=== PATIENT | male | born 1960 | race Caucasian/White ===

== ENCOUNTER → 2025-04-21 09:30 | Outpatient (REF) | payer MEDICARE, OTHER, SELFPAY | LOC: WDC 09:30 | PROVIDERS: ATTENDING PHYSICIAN Student in an Organized Health Care Education/Training Program | DX: M70.89 Other soft tissue disorders related to use, overuse and pressure multiple sites (principal); R22.32 Localized swelling, mass and lump, left upper limb; N63.32 Unspecified lump in axillary tail of the left breast | CPT/HCPCS: 76642; 77062; 77066 ==

== ENCOUNTER → 2025-05-26 19:01 | Outpatient (REF) | payer MEDICARE, OTHER, SELFPAY | LOC: MRI 3T 19:01 | PROVIDERS: ATTENDING PHYSICIAN Surgery; FAMILY PHYSICIAN Student in an Organized Health Care Education/Training Program | DX: M79.89 Other specified soft tissue disorders (principal) | CPT/HCPCS: 71552; A9575 ==

== ENCOUNTER 2025-08-01 06:24 | Day surgery (SDC) | payer MEDICARE, OTHER, SELFPAY ==
[2025-08-01] VITALS (11 sets, daily range): BP systolic 0–142; BP diastolic 72–99; BMI 25.5
[2025-08-01] MEDS: TYLENOL 1000 MG PO (11:00)
[2025-08-01] MEDS: NORMOSOL-R/PLASMALYTE-A 1000 IV (11:20)
--- NOTE | 2025-08-01 16:49 | W.IMMPOSTOP ---
Surgical Immed Post Op Note
-
Primary Surgeon: Thierno
Assisting Surgeon: None
Pre-op Diagnosis: Left axillary mass
Post-op Diagnosis: Same
Procedure Performed: Excisional biopsy left axillary mass
Anesthesia Type: LMA general
Specimen / Cultures: Left axillary mass
Estimated Blood Loss: 10cc
Complications: None
Operative Findings: None
--- NOTE | 2025-08-01 16:50 | OR.RPT ---
Operative Report
Operative Report
Date of procedure: 08/01/2025
Surgeon: Thierno
Preoperative diagnosis: Left axillary mass
Postoperative diagnosis: Left axillary mass
Procedure: Excisional biopsy left axillary mass
The patient is a 64-year-old female male who had noted an enlarging mass of his left axilla. He underwent workup with an MRI it was consistent with a benign lipoma. He presents for excision as this was becoming symptomatic.
On the day of the procedure he presented to the same-day surgical services unit. He was prepped and verified site and procedure. DVT and antibiotic prophylaxis were provided. He was transferred to the operating room and in the supine position LMA
general anesthesia was delivered. The left axilla was prepped and draped in the usual sterile fashion and all team members performed an appropriate timeout procedure.
All tissues were anesthetized with 1% lidocaine plain. A curvilinear incision inferior to the hairline was made sharply with the blade. Dissection was carried through clavipectoral fascia using the cautery and the mass was encountered in the
axilla. This was lobulated but circumscribed. It did overlap an intercostal brachial nerve which was preserved throughout its course. The mass was removed and sent in 2 separate and 2 sections for pathologic analysis. Long thoracic and
thoracodorsal nerves were identified and preserved throughout their course and this mass glide inferior to the major axillary vessels.
A 15 [place] channel drain was passed through the inferior portion of the wound and secured to the skin with a 2-0 Prolene. The incision was closed using simple intrrupted 2-0 Polysorb on deep and intermediate tissue and skin was closed with simple
interrupted 3-0 Polysorb and a running subcuticular 4 Monocryl. Surgical glue and a sterile compressive dressing were applied. All sponge needle and instrument counts were correct and the patient was transferred to the recovery room in stable
condition.
([id number])
== END 2025-08-01 17:14 | disposition home or self-care (01) ==
LOC: SDS 06:24
PROVIDERS: ATTENDING PHYSICIAN Surgery; FAMILY PHYSICIAN Student in an Organized Health Care Education/Training Program
DX: D17.22 Benign lipomatous neoplasm of skin and subcutaneous tissue of left arm (principal)
CPT/HCPCS: 19120; 88304; 88307; 88313; 88341; 88342